=== PATIENT | female | born 1975 | race African-American/Black ===

== ENCOUNTER 2016-11-06 07:07 | Emergency (ER) | payer SELFPAY ==
[~2016-11-06] VITALS: Ht 172.7 cm; Wt 90.7 kg
[~2016-11-06 07:07] MED LIST: LEVO112T7 PO
[2016-11-06 07:33] VITALS: BP 133/81
== END 2016-11-06 07:59 | disposition home or self-care (01) ==
LOC: ER 07:10
DX: N76.0 Acute vaginitis (principal); Z88.2 Allergy status to sulfonamides
CPT/HCPCS: A4606; Z7610